=== PATIENT | female | born 1985 | race Caucasian/White ===

== ENCOUNTER 2017-04-12 18:24 | Emergency (ER) | payer MEDICAID ==
[~2017-04-12] VITALS: Ht 182.9 cm; Wt 102.1 kg
[~2017-04-12 18:24] MED LIST: CIPRO 500MG TA500 MG PO; DILAUDID2 MG PO; ESTRACE 1MG TABL1 MG PO; HYDROCODONE BIT1 T39 PO; IRON TABLETS325 MG PO; MINOCYCLINE 10100 MG PO; NOMEDS; PREDNISONE 20MG20 MG PO; SYNTHROID 0.0.075 MG PO; TESSALON PERLE100 MG PO; VISTARIL25 M1 PO; ZOLOFT100 MG PO
[2017-04-12] MEDS ORDERED: SUBOXONE1 FI1 SL (18:37)
[2017-04-12] MEDS ORDERED: CLINDAMYCIN HC300 MG PO (18:59)
[2017-04-12] MEDS ORDERED: PROBIOTIC ACID1 EAC2 PO (18:59)
--- NOTE | 2017-04-12 19:01 | Urgent Treatment Center Report ---
History of Present Issue Date/Time Seen by Provider 04/12/17 9742 Visit Reason Pt arrived:Walked Presenting Problem:PT STATES AREA TO INNER LEFT ANKLE THAT SHE NOTICED A COUPLE OF WEEKS AGO. NOTED TO HAVE SWELLING TO LEFT ANKLE. STATES SHE ATTEMPTED TO "POP " AREA BUT WAS NOT ABLE TO Location if Accident: Onset of symptoms date/time:/ or onset unknown for:MEDICAL HX UNKNOWN Have you (or family members/close friends) recently traveled outside the [place]? N If Yes, where/when: Have you had exposure to infectious disease within the past month? TB? Other? Specify: Patient states that she has had a small pimple like area on her left inner ankle States that she began mashing on it and trying to get it to open and now is having swelling and pain in the ankle. State that the only thing that came out of it was clear. and only a small amount ALLERGIES Coded Allergies: Sulfa (Sulfonamide Antibiotics) (Severe, LIPS SWELLING 05/23/16) morphine (Intermediate, ITCHING 05/23/16) Home Medications Reported Medications BUPRENORPHINE HCL/NALOXONE HCL (Suboxone 12 MG-3 MG Sl Film) 1 SL DAILY History Medical History General CAD? No Angina: No CO: No Hypertension? No Hyperlipidemia? No CHF? No DVT? No PE? No COPD? No Asthma? No Anemia? No GERD? No Gastric ulcers? No GI Bleed? No Hernia? No Thyroid Problems? No Hypothyroidism? No CVA? No Seizures? No Diabetes? No Renal Insuffiency? No UTI? Yes Stones? No BPH? No GB Disease: No Nephritic Syndrome? No Asplenia? No Hepatitis? No Sickle Cell Disease? No Arthritis? No Migraines? No Cataracts? No Glaucoma? No MRSA? Yes HIV? No TB? No Anxiety? No Depression? No Cancer? No More? No Immunization HX DT/Tetanus 1-4 Years Ago Flu REFUSES Pneumonia REFUSES Surgical Hx Previous Surgery?Y TonsilLECTOMY CONE BX EXP LAP-ECTOPIC LT OVARIAN CYSTECTOMY RT OVARIAN CYST ASPIRATIO VULVAR LESION ABLASION X 1 DX LAP FOR OVARIAN CYST HYSTERECTOMY Family History Family HX Diabetes Yes CAD Yes Hypertension Yes Hyperlipidemia Yes Cancer Yes TB No Social History Smoking Hx Smoker: Current Every Day Smoker Tobacco: Yes Type Cigarettes Packs/day < 1 Pack Alcohol Alcohol: No Review of Systems All Other Systems Reviewed and Negative Comment Pain and swelling to raised area on the inside of her left ankle that is now red due to her mashing onit Physical Exam Vital Signs Vital Signs Date Time Temp Pulse Resp B/P Pulse O2 O2 Flow FiO2 Ox Delivery Rate 04/12 1833 97.4 80 20 135/87 99 General Appearance normal appearance, WD/WN, no apparent distress Respiratory Status Yes: trachea midline, chest symmetrical, non tender chest. No: respiratory distress. 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 No Departure Departure Time of Disposition 1846 Disposition DC Home or Self Care(routine) Clinical Impression Primary Impression: Abscess Condition STABLE Referrals Garett BURNETTE,A.C. (Family): 3 Days-Call Office if no improvement or worsening of symptoms Patient Instructions JOANNE Villanueva for Skin Abscess Additional Instructions Monitor area if you see streaks coming from the area around the foot, warmth, or spreading redness go straight to the ER Make sure to eat yogurt while taking this medication as it can cause GI upset and destroy good bacteria in the bowel Follow up with family doctor Return if needd Take medication as prescribed 8 oz yogurt BID Take at least 2 hours after antibiotic; continue for several days after antibiotic treatment finished 8 oz yogurt BID Take Lactobacillis at least 2 hours after antibiotic; continue for several days after antibiotic treatment finished Discharge Counseling Counseled pt/family regarding diagnosis, medications/RX, home care, follow up needs Prescriptions Current Visit Scripts Clindamycin Hcl (Clindamycin 300MG) 300 MG PO QID #28 CAP Lactobacillus Acidophilus (Probiotic Acidophilus) 1 EACH PO BID #20 TAB at 1900
[2017-04-12 19:03] VITALS: BP 135/87
--- OUTSIDE RECORDS SUMMARY | 2017-04-15 17:23 | External Medical Summary Rpt ---
Author Author ERICK Dixon, [employer] Organization [employer] Address Unknown Phone Unavailable
--- OUTSIDE RECORDS SUMMARY | 2017-04-15 17:23 | External Medical Summary Rpt ---
Demographics Preferred Language Swedish Marital Status Unknown Oriental Orthodox Affiliation Unknown Race Unknown Ethnic Group Unknown Author Author , ERICK [employer] Address Unknown Phone Immunization Unable to retrieve immunization data due to connection failure with Immunization Registry. Please try again later.
--- OUTSIDE RECORDS SUMMARY | 2017-04-15 17:23 | External Medical Summary Rpt ---
Demographics Preferred Language Kinyarwanda Marital Status Unknown Islam Affiliation Unknown Race Unknown Ethnic Group Unknown Author Author , [employer]ICK [employer] Address Unknown Phone Immunization Unable to retrieve immunization data due to connection failure with Immunization Registry. Please try again later.
== END 2017-04-12 19:03 | disposition home or self-care (01) ==
LOC: UTC 18:24
DX: L02.416 Cutaneous abscess of left lower limb (principal)